=== PATIENT | male | born 1995 | race Hispanic/Latino ===

== ENCOUNTER 2016-09-21 07:04 | Emergency (ER) | payer OTHER ==
[~2016-09-21] VITALS: Ht 157.5 cm; Wt 70.5 kg
[2016-09-21 07:07] VITALS: BP 136/84; PULSE 74; RESP 15; O2SAT 100
--- NOTE | 2016-09-21 07:13 | ED.REPORT ---
HPI-Allergic Reaction Date of Service Sep 21, 2016 ED Provider: Oscar Carrillo DO Pt is a healthy 21 y.o. male who presents to the ED c/o tonsil swelling onset 399. Pt states that he woke up and his tonsils felt swollen and he found it difficult to swallow his own saliva. He states that his voice sounds normal to him but his mom told him this morning that it sounded "weird" to her. He denies SOB and facial swelling. He claims he was around a campfire last night and upon leaving felt normal. He denies any recent illness or a hx of allergies. Pt notes a hx of frenectomy. Nursing Notes Stated Complaint: TONSILS HURT Chief Complaint: Allergic Reaction Nursing Notes Reviewed: Yes Allergies: Coded Allergies: No Known Allergies (Unverified Allergy, Unknown, 09/21/16) Scheduled Amoxicillin/Clav K 875-125 mg (Augmentin 875-125 mg) 1 Each Tablet 1 TABLET PO BID Prednisone (PredniSONE) 20 Mg Tablet 40 MG PO DAILY General Time Seen by MD: 07:13 Chief Complaint Swelling throat (tonsils) Hx Obtained From: Patient Onset Occurred: 1 - 4 hours ago Past Medical History Past Medical History Healthy Past Surgical History Frenectomy Review of Systems No facial swelling Ears / Nose / Throat: Reports: Throat swelling (tonsils) Respiratory: Denies: Shortness of breath Complete sys rev & neg: except as marked. Physical Exam Initial Vital Signs Vital Signs (First) Date Time Temp Pulse Resp B/P Pulse Ox O2 Delivery O2 Flow Rate FiO2 09/21/16 07:07 36.6 74 15 136/84 100 Room Air Initial VS: Reviewed Head / Eyes: Atraumatic, Normocephalic Abdomen / GI: No distention Extremities: Vascular intact, Neuro intact Neurologic: Alert, Oriented, Nonfocal Psychiatric: Mood/affect normal, Behavior normal, Normal thought content General/Constitutional: Awake, Alert, No acute distress, Well appearing, Well developed, Well hydrated, Well nourished, Not toxic appearing Respiratory / Chest: Atraumatic, Breath sounds NL, Breath sounds = bilat, No respiratory distress, No wheezing, No stridor Cardiovascular: Heart rate NL, Regular rhythm, Heart sounds NL, Peripheral circulation NL Skin: Atraumatic, Color NL, Warm, Dry, Intact ENT: Atraumatic, Airway patent, Pharynx NL, No facial swelling Pharynx / Tonsils / Uvula: Positive: Tonsillar erythema L, Tonsillar erythema R , Uvula edematous (Lower half) Neck: Atraumatic, Supple, No adenopathy Interpretation & Diagnostics Lab Results Interpretation Test 09/21/16 07:55 Hold Purple Top Tube Received (Received) Hold Blue Top Tube Received (Received) Hold Vance Top Tube Received (Received) Hold Lowe Top Tube Received (Received) Lab Results Interpretation: Strep test negative Re-Eval/Medical Decision Med Decision/Clinical Course Patient presents with sore throat and both erythema and mild edema of the uvula, certainly both infectious and allergic etiologies are considered. In terms of infection, he is afebrile with stable vital signs, his exam does not show signs or symptoms of a deep space infection such as a peritonsillar, retropharyngeal abscess or epiglottitis. In terms of allergic symptoms, he has no urticaria, pruritus, erythematous skin or other systemic signs and symptoms of systemic infection. He was observed for several hours in the ER and had some improvement in his throat exam, certainly he had no worsening. He will be treated with Augmentin as there is a slight chance this could be a bacterial etiology as well as treated with prednisone which will likely benefit both the swelling, and edema and the chance of this is an allergic component. He is given both verbal and written discharge instructions and return precautions. Source of Hx: Old records Re-Evaluation/Progress #1: Time of Eval: 08:18 Re-Evaluation/Progress Note: Pt rechecked. He states he feels the same as prior. Re-Evaluation/Progress #2: Time of Eval: 09:07 Patient Status: Condition unchanged Re-Evaluation/Progress Note: Pt rechecked. He is able to tolerate PO intake. He still states that he feels the same. Re-Evaluation/Progress #3: Time of Eval: 09:34 Re-Evaluation/Progress Note: Pt rechecked. Discussed plan for discharge, pt understands and agrees with plan. Counseled Regarding: Diagnosis, Lab results, Need for follow-up, When/why to return to ED Discharge & Departure Primary Impression: Uvular swelling Disposition: Home Discharge Condition All VS Reviewed: Yes Condition: Improved Additional Instructions: Thank you for entrusting us with your care today. Your strep test was negative, whether this test is not 100% accurate and given your symptoms we will treat you with Augmentin on the off chance that this is an infection. Additionally, your symptoms could be due to an allergic reaction. We will treat you with prednisone, this will help with both the swelling and throat discomfort. Also use [id number] Benadryl as needed for any itching or other allergic symptoms. I recommend that you stay hydrated, use Tylenol or ibuprofen [id number] for discomfort. Return immediately if you experience difficulty breathing, difficulty swallowing, increased swelling, or any new or worsening symptoms. Referrals: On license of [facility] (PCP) Scribe Attestation Portions of this note were transcribed by Belinda Gaming. I, Dr. Carrillo personally performed the history, physical exam and medical decision-making; I reviewed and confirmed the accuracy of the information in the transcribed note. Signed by: Terrell Vargas, 09/21/16 and 0945. copies to: On license of [facility] Oscar Carrillo DO Sep 21, 2016 07:13 BELINDA GAMING Sep 21, 2016 07:19
[2016-09-21] MEDS ORDERED: Famotidine 10 mg/mL 2 mL Inj IVPUSH ONE (07:30)
[2016-09-21] MEDS ORDERED: MethylprednisoLONE Sodium Succinate 62.5 mg/mL 2 mL Inj IVPUSH ONE (07:30)
[2016-09-21] MEDS ORDERED: Ketorolac 15 mg/mL Inj IVPUSH ONE (09:10)
[2016-09-21 09:32] VITALS: BP 114/73; PULSE 71; RESP 14; O2SAT 99
[2016-09-21] MEDS ORDERED: PRE20 PO (09:40)
[2016-09-21] MEDS ORDERED: AMOX-366 PO (09:40)
[2016-09-21 10:31] VITALS: BP 119/60; PULSE 83; RESP 16; O2SAT 100
== END 2016-09-21 09:40 | disposition home or self-care (01) ==
LOC: SED 07:04
DX: K13.79 Other lesions of oral mucosa (principal); Z98.890 Other specified postprocedural states
CPT/HCPCS: 87880; 96374; 96375; 99284; J1200; J1885; J2930